=== PATIENT | male | born 1940 | race Caucasian/White ===

== ENCOUNTER → 2017-10-03 | Outpatient (CLI) | payer MEDICARE ==
[~2017-10-03] MED LIST: ASPI1TAB PO; CIPR-249 PO; INDE1CAP5 PO; PERC5TAB12 PO; RANI1TAB6 PO; XANA0.5T PO; ZOCO20TA PO
[2017-10-03 14:12] LABS: CALCIUM LEVEL 8.6 MG/DL (8.8-10.2); CREATININE FOR GFR 1.55 MG/DL (0.70-1.30); GLOMERULAR FILTRATION RATE 46.8 (>42); POTASSIUM SERUM 4.7 MEQ/L (3.5-5.1)
[2017-10-03 14:18] LABS: MEAN CORPUSCULAR HEMOGLOBIN 29.7 pg (27.0-33.0); MEAN CORPUSCULAR HGB CONC 33.8 g/dl (32.0-36.5); MEAN CORPUSCULAR VOLUME 87.8 fl (80.0-96.0); PLATELET COUNT, AUTOMATED 133 10^3/uL (150-450); WHITE BLOOD COUNT 6.7 10^3/uL (4.0-10.0)
== END ==
LOC: M SMT 09:55
PROVIDERS: ATTEND Urology
DX: N26.1 Atrophy of kidney (terminal) (principal)